=== PATIENT | male | born 1940 | race Two or more races ===

== ENCOUNTER 2023-11-26 15:44 | Emergency (ER) | payer OTHER ==
[~2023-11-26] VITALS: Ht 167.6 cm; Wt 79.4 kg
[2023-11-26] MEDS ORDERED: ZESTRIL2.5 MG PO (16:01)
[2023-11-26] MEDS ORDERED: MONTELUKAST SODI4 M1 PO (16:01)
[2023-11-26] MEDS ORDERED: ACID REDUCER20 M1 PO (16:02)
[2023-11-26] MEDS ORDERED: PEPCID AC20 MG PO (16:02)
[2023-11-26] MEDS ORDERED: NABUMETONE750 MG PO (16:02)
[2023-11-26] MEDS ORDERED: ARICEPT10 MG PO (16:02)
[2023-11-26] MEDS ORDERED: TRAZODONE HCL100 MG PO (16:03)
[2023-11-26] MEDS ORDERED: KEPPRA100 MG/1 M PO (16:03)
[2023-11-26] MEDS ORDERED: SIMVASTATIN5 MG (16:03)
[2023-11-26] MEDS ORDERED: MELATONIN5 M1 PO (16:03)
[2023-11-26] MEDS ORDERED: ESCITALOPRAM OX20 MG PO (16:04)
[2023-11-26] MEDS ORDERED: 0.9 % SODIUM CHLORIDE 1,000 ML IV SCH (16:45)
[2023-11-26 17:37] LABS: HEMOGLOBIN 12.7 g/dL (13-16.00); MEAN CELL VOLUME 92.8 fL (80.0-100.00); MEAN CORPUSCULAR HEMOGLOBIN 31.8 pg (27.00-32.0); MEAN CORPUSCULAR HGB CONC 34.2 g/dl (32.0-36.0); PLATELET COUNT 307 K/uL (150-450); RED BLOOD COUNT 3.99 M/uL (4.00-6.00); RED CELL DISTRIBUTION WIDTH 14.4 % (11.5-14.5)
[2023-11-26 18:11] LABS: PH,URINE 5.5 (5.0-8.0); URINE APPEARANCE Cloudy; URINE BILIRRUBIN Large (NEGATIVE); URINE BLOOD Negative; URINE COLOR Orange; URINE GLUCOSE Negative (NEGATIVE); URINE LEUKOCYTE Moderate; URINE NITRATE Positive; URINE PROTEIN 30 (NEGATIVE); URINE UROBILINOGEN 0.2 E.U./dl
[2023-11-26 18:14] LABS: ALBUMIN 2.3 gm/dL (3.4-5.0); CREATININE SERUM 1.06 mg/dL (0.70-1.30); GFR 66.88; GLOBULINA 4.4 G/DL (2.4-3.5); POTASSIUM 3.72 mEq/L (3.5-5.1); TOTAL PROTEIN 6.7 gm/dL (6.4-8.2)
[2023-11-26 18:15] LABS: URINE BACTERIA 90.7 uL (0.0-1933); URINE EPITHELIAL CELLS 85.7 uL (0.0-38.8); URINE RBC 14.6 uL (0.0-20.8); URINE WBC 12.5 uL (0.0-23.2)
[2023-11-26 18:35] LABS: BILIRUBIN,UNCONJUGATED 2.94 mg/dL (0.0-0.6)
[2023-11-26 18:36] LABS: BILIRUBIN TOTAL 17.85 mg/dL (0.3-1.2)
[2023-11-26 18:37] LABS: BILIRUBIN,CONJUGATED 14.91 mg/dL (0.0-0.2)
[2023-11-26 19:07] LABS: URINE CRYSTALS NEGATIVE /HPF; URINE MUCUS SCANT
== END 2023-11-26 21:27 | disposition designated cancer center or children's hospital (05) ==
LOC: ER 15:44
PROVIDERS: General Practice
DX: C25.0 Malignant neoplasm of head of pancreas (principal); R17 Unspecified jaundice; I10 Essential (primary) hypertension; N39.0 Urinary tract infection, site not specified
CPT/HCPCS: 36415; 74177; 96365; 96366; 99284; J7030; Q9965